=== PATIENT | female | born 1975 | race Caucasian/White ===

== ENCOUNTER 2017-06-06 22:18 | Inpatient (IN) | payer MEDICAID ==
[~2017-06-06] VITALS: Ht 160 cm; Wt 73.6 kg
--- NOTE | 2017-06-06 22:26 | NUR ---
PT SENT TO LOBBY TO WAIT FOR AVAILABLE BED. NO DISTRESS AND ALERT AND ORIENTED
--- NOTE | 2017-06-07 00:07 | NUR ---
PT PRESENTED TO ED WITH C/O EPIGASTRIC PAIN SINCE EARLIER TODAY. PT REPORTS PAIN RADIATES TO LOWER BACK. PT DENIES PAIN WHEN VOIDING. PT REPORT N&V, DESCRIBES PAIN PRESSURE, PAIN LEVEL 10/10. PT IS AAOX4, BREATHING EVEN AND UNLABORED. PT IN NO ACUTE DISTRESS
[2017-06-07 00:42] LABS: UA SPECIFIC GRAVITY >=1.030 (1.005-1.035); microscopic required? YES; urine erythrocyte TRACE (NEGATIVE)
[2017-06-07 00:44] LABS: BASOPHIL % 0.2 % (0-2); PLATELET COUNT 390 x10^3mcL (130-400); RED CELL DISTRIBUTION WIDTH 13.1 % (11.5-14.5)
[2017-06-07 00:46] LABS: CALCIUM 9.1 mg/dL (8.5-10.1); CARBON DIOXIDE 30.1 mmol/L (21-32); CHLORIDE SERUM 104 mmol/L (98-107); CREATININE SERUM 0.8 mg/dL (0.6-1.0); GFR1 > 60 mL/min; GLUCOSE SERUM 166 mg/dL (74-106); POTASSIUM SERUM 3.4 mmol/L (3.5-5.1); SODIUM SERUM 142 mmol/L (136-145)
[2017-06-07 00:51] LABS: ALBUMIN 4.3 g/dL (3.4-5.0); ALKALINE PHOSPHATASE 176 U/L (46-116); ALT/SGPT 299 U/L (14-59); AST/SGOT 251 U/L (15-37); BILIRUBIN TOTAL 2.8 mg/dL (0.20-1.00)
[2017-06-07 00:53] LABS: TOTAL PROTEIN, SERUM 8.5 g/dL (6.4-8.2)
--- NOTE | 2017-06-07 01:05 | NUR ---
MEDICATED PT PER E-MAR
--- NOTE | 2017-06-07 01:07 | NUR ---
PT TAKEN TO CT VIA ALLAN
--- NOTE | 2017-06-07 01:20 | NUR ---
PT RETURNED FROM CT SCAN
--- NOTE | 2017-06-07 01:42 | NUR ---
PT STATES PAIN HAS DECREASED. PT AAOX4, IN NO ACUTE DISTRESS.
[2017-06-07 01:44] LABS: LIPASE 24643 IU/L (73-393)
--- NOTE | 2017-06-07 02:17 | NUR ---
PT STATES CONTINUES TO EXPERIENCE PAIN. NOTIFED DR. GILLESPIE
--- NOTE | 2017-06-07 03:52 | NUR ---
GAVE REPORT TO JONNATHAN SINGER, TO ASSUME CARE POST TRANSFER
[2017-06-07 04:07] LABS: AMPHETAMINE QUAL UR NONE DETECTED (NEG <=1000)
[2017-06-07 04:07] LABS: FREE T4 1.07 ng/dL (0.76-1.46); FREE THYROXINE INDEX 3.2 ug/dL (1.4-4.5); T4(THYROXINE) 9.6 ug/dL (4.7-13.3)
[2017-06-07 04:10] LABS: T3 TOTAL 1.09 ng/mL
[2017-06-07 04:17] LABS: MAGNESIUM 2.2 mg/dL (1.8-2.4); PHOSPHOROUS 3.8 mg/dL (2.5-4.9)
--- NOTE | 2017-06-07 05:00 | NUR ---
RECEIVED PT FROM ED VIA MANPREET ACCOMPANIED BY NURSE. PT C/O OF ABDOMINAL PAIN AT THIS TIME, 8/10 ON PAIN SCALE. SHE STATES THAT WHEN SHE TAKES DEEP BREATHS, THAT'S WHEN THE ABDOMINAL PAIN GETS WORSE. PT DENIES N/V. PT STATED LAST BM WAS YESTERDAY BUT REPORTS THAT SHE FEELS CONSTIPATED AT THIS TIME. PT STATES THAT SHE FEELS CONSTIPATED EVERY NOW AND THEN. ABD IS ROUND AND SOFT WITH ACTIVE BOWEL SOUNDS. PT STARTED ON IV FLUIDS PER DOCTOR'S ORDERS. IV SITE IS DRY, PATENT, AND INTACT. SHE IS CALM AND COOPERATIVE AT THIS TIME. ORIENTED PT TO ROOM AND CALL LIGHT. WILL CONTINUE TO MONITOR
--- NOTE | 2017-06-07 05:46 | NUR ---
PT C/O OF ABDOMINAL PAIN AT THIS TIME. 8/10 ON PAIN SCALE. GIVEN PRN PAIN MEDICATION. WILL CONTINUE TO MONITOR
[2017-06-07 05:56] VITALS: BP 104/63
--- NOTE | 2017-06-07 06:56 | NUR ---
PT IS LAYING IN BED WITH EYES CLOSED AT THIS TIME. SHE DOES NOT APPEAR TO BE IN ANY ACUTE DISTRESS AT THIS TIME. IV FLUIDS REMAIN INFUSING PER DOCTOR'S ORDERS. IV SITE IS DRY, PATENT, AND INTACT. CALL LIGHT WITHIN REACH. WILL ENDORSE CARE TO DAY NURSE
--- NOTE | 2017-06-07 07:50 | NUR ---
RECEIVED PT IN BED. ASSESSED AND DOCUMENTED. STATED ABDOMINAL PAIN, 03/20. WILL MEDICATE WITH PRN DILAUDID ORDERED. NO NAUSEA/VOMITTING. SAFTEY PRECAUTIONS ON. WILL MONITOR.
--- NOTE | 2017-06-07 08:45 | NUR ---
AND RESIDENTS DID ROUNDS. EXPLAINED THE PLAN OF CARE.
[2017-06-07 08:54] LABS: BASOPHIL % 0.7 % (0-2); PLATELET COUNT 364 x10^3mcL (130-400); RED CELL DISTRIBUTION WIDTH 13.7 % (11.5-14.5)
[2017-06-07 09:10] LABS: CALCIUM 7.6 mg/dL (8.5-10.1); CARBON DIOXIDE 28.7 mmol/L (21-32); CHLORIDE SERUM 110 mmol/L (98-107); CREATININE SERUM 0.6 mg/dL (0.6-1.0); GFR1 > 60 mL/min; GLUCOSE SERUM 124 mg/dL (74-106); POTASSIUM SERUM 3.7 mmol/L (3.5-5.1); SODIUM SERUM 144 mmol/L (136-145)
[2017-06-07 10:00] VITALS: BP 107/67
[2017-06-07 13:32] VITALS: BP 91/64
--- NOTE | 2017-06-07 14:00 | NUR ---
INFORMED ABOUT US ABDOMEN RESULT.
--- NOTE | 2017-06-07 14:00 | NUR ---
PT RESTING IN BED COMFORTABLY. DENIES PAIN. STABLE.
[2017-06-07 17:14] VITALS: BP 105/66
--- NOTE | 2017-06-07 19:03 | NUR ---
PT RESTING IN BED COMFORTABLY. DENIES PAIN THIS TIME. NO DISTRESS NOTED. GAVE REPORT TO NEXT SHIFT NURSE.
--- NOTE | 2017-06-07 19:25 | NUR ---
RECEIVED PT IN BED AAWAKE, ALERT,ORIENTED X4. NO SOB ON RA. BOWEL SOUNDS ACTIVE. PT STATED ABDL PAIN IS MINIMAL AT THIS TIME. NO C/O N/V. PT ON NPO STATUS ORDERED. W/ IVF NS AT 150 CC/HR VIA LTFA. CALL LIGHT W/IN REACH.
[2017-06-07 20:51] VITALS: BP 99/51
[2017-06-08 05:20] VITALS: BP 109/52
--- NOTE | 2017-06-08 05:20 | NUR ---
PT SLEPT THROUGH THE NIGHT. SHE HAD NO C/O PAIN. NO N/V. PT SCHEDULED FOR ERCP AT 0730. IVF NS AT 150 CC/HR INFUSING WELL VIA LTFA.
--- NOTE | 2017-06-08 06:52 | NUR ---
CHLORHEXIDINE WIPES PRE-OP WASH DONE PER PROTOCOL.
--- NOTE | 2017-06-08 07:10 | NUR ---
PT TAKEN DOWN FOR ERCP.
--- NOTE | 2017-06-08 07:10 | NUR ---
RECEIVED PT FROM [employer] DRAWING OPERATOR. ASSESSED AND WILL DOCUMENT. PT DENIES PAIN. OR STAFF IS TAKING PT TO OR VIA [facility]ER[facility] FOR ERCP. PT STABLE. VITAL SIGNS STABLE. PT SIGNED CONSENT YESTERDAY AND CHECK LIST DONE.
[2017-06-08 07:49] LABS: PLATELET COUNT 305 x10^3mcL (130-400); RED CELL DISTRIBUTION WIDTH 14.1 % (11.5-14.5)
[2017-06-08 07:59] LABS: CALCIUM 7.8 mg/dL (8.5-10.1); CARBON DIOXIDE 25.5 mmol/L (21-32); CHLORIDE SERUM 109 mmol/L (98-107); CREATININE SERUM 0.6 mg/dL (0.6-1.0); GFR1 > 60 mL/min; GLUCOSE SERUM 109 mg/dL (74-106); POTASSIUM SERUM 3.5 mmol/L (3.5-5.1); SODIUM SERUM 144 mmol/L (136-145)
[2017-06-08 08:02] LABS: PHOSPHOROUS 2.1 mg/dL (2.5-4.9)
--- NOTE | 2017-06-08 09:00 | NUR ---
RECEIVED PT FROM RECOVERY ROOM AFTER ERCP. VITAL SIGNS STABLE AND RECORDED. DENIES PAIN THIS TIME. PT IS AWAKE,ALERT AND ORIENTED X4.
[2017-06-08 09:09] LABS: BAND NEUTROPHIL 4 % (0-10); BASOPHIL 0 % (0-2); MONOCYTE 2 % (0-7); SEGMENTED NEUTROPHILS 85 % (37-75)
[2017-06-08 09:11] LABS: PLATELET MORPHOLOGY PLATELETS NORMAL
[2017-06-08 09:59] VITALS: BP 106/66
--- NOTE | 2017-06-08 16:44 | NUR ---
TEMP IS 102.1. TYLENOL PO GIVEN AND COOLING MEASURES STARTED. RECHECKED TEMP AT 1745 AND TEMP IS 98.2.PT IS STABLE.
--- NOTE | 2017-06-08 16:45 | NUR ---
INFORMED ABOUT PT TEMP 102.1.
[2017-06-08 16:55] VITALS: BP 112/65
--- NOTE | 2017-06-08 19:00 | NUR ---
PT REMAINS STABLE. TEMP 98.2 NOW. NO DISTRESS NOTED. GAVE REPORT TO NEXT SHIFT NURSE.
--- NOTE | 2017-06-08 19:25 | NUR ---
PT AWAKE AND ORIENTED X 4. FAMILY AT BEDSIDE. BOWEL SOUNDS HYPOACTIVE, ABD ROUND AND SOFT. PT VERBALIZED PAIN AT 4/10 AND TOLERABLE. ADVISED PT TO NOTIFY NURSE FOR PAIN MGT. PT NPO FOR POSSIBLE PROCEDURE TOMORROW AM PER MD. CALL LIGHT AND PERSONAL BELONGINGS WITHIN REACH. WILL CONTINUE TO MONITOR.
--- NOTE | 2017-06-08 22:07 | NUR ---
I HAVE REVIEWED THE DATA COLLECTION BY REGIONAL PROJECT MANAGER (NAME):ENMANUEL SPAIN ENTERED ON (DATE/TIME): I CONCUR WITH THE DATA AND ANY EXCEPTIONS OR COMMENTS ARE LISTED BELOW:
--- NOTE | 2017-06-08 22:07 | NUR ---
PATIENT'S PLAN OF CARE WAS DISCUSSED AND REVIEWED WITH CLINICAL DOCUMENTATION CONSULTANT:ENMANUEL SPAIN
[2017-06-08 22:15] VITALS: BP 132/72
[2017-06-09 05:49] VITALS: BP 118/64
[2017-06-09 06:37] LABS: CALCIUM 7.7 mg/dL (8.5-10.1); CARBON DIOXIDE 25.2 mmol/L (21-32); CHLORIDE SERUM 106 mmol/L (98-107); CREATININE SERUM 0.6 mg/dL (0.6-1.0); GFR1 > 60 mL/min; GLUCOSE SERUM 98 mg/dL (74-106); SODIUM SERUM 142 mmol/L (136-145)
--- NOTE | 2017-06-09 06:41 | NUR ---
PT SLEPT FAIRLY. SHE WAS MEDICATED FOR PAIN X3 W/ DILAUDID W/ GOOD RELIEF. NO EPISODE OF N/V. NO BM NOTED. SHE IS KEPT ON NPO STATUS FOR POSS. PROCEDURE. IVF NS AT 126 CC/HR INFUSING VIA LTFA.
[2017-06-09 06:53] LABS: ALBUMIN 2.3 g/dL (3.4-5.0)
[2017-06-09 07:01] LABS: POTASSIUM SERUM 2.8 mmol/L (3.5-5.1)
--- NOTE | 2017-06-09 07:30 | NUR ---
PATIENT IS IN BED, AWAKE, ALERT BELGIAN SPEAKING IVF INFUSING WELL TO LEFT F/A. NPO EXCEPT FOR MEDS AT THIS TIME. PER PATIENT HER ABD PAIN IS MINIMAL AND TOLERABLE AT THIS TIME. AMBULATES AD ADOLFO TO THE BATHROOM PRN. NO ACUTE DISTRESS NOTED. WILL CONTINUE TO MONITOR.
[2017-06-09 08:17] LABS: PLATELET COUNT 288 x10^3mcL (130-400); RED CELL DISTRIBUTION WIDTH 14.3 % (11.5-14.5)
--- NOTE | 2017-06-09 08:30 | NUR ---
DR STRINGER AND MEDICAL TEAM INTO SEE PATIENT AND DISCUSS PLAN OF CARE.
--- NOTE | 2017-06-09 08:57 | NUR ---
PATIENT IS IN BED, C/O ABD PAIN 9/10 ON THE PAIN SCALE. MEDICATED WITH DILAUDID IV BY TANA SINGER ORDERED. WILL MONITOR FOR EFFECT.
[2017-06-09 09:48] VITALS: BP 125/71
--- NOTE | 2017-06-09 11:32 | NUR ---
FLEETS ENEMA GIVEN AT THIS TIME. PATIENT TOLERATED WELL. WILL MONITOR FOR EFFECT.
[2017-06-09 11:45] LABS: BAND NEUTROPHIL 2 % (0-10); BASOPHIL 0 % (0-2); MONOCYTE 4 % (0-7); PLATELET MORPHOLOGY PLATELETS NORMAL; SEGMENTED NEUTROPHILS 84 % (37-75); rbc morphology (normal/abnorm) NORMAL (NORMAL)
--- NOTE | 2017-06-09 15:54 | NUR ---
PATIENT IS IN BED, IV SITE ON LEFT F/A APPEARS PINK AND TENDER TO TOUCH PER PATIENT. NEW IV STARTED ON LEFT HAND. K-KODY WAS GIVEN BY TANA SINGER FOR K+ LEVEL OF 2.8 ORDERED. IVF INFUSING WELL. PER PATIENT HER ABD PAIN HAS DECREASED AFTER DILAUDID WAS GIVEN. WILL CONTINUE TO MONITOR.
[2017-06-09 16:44] VITALS: BP 126/74
[2017-06-09 16:57] LABS: CARBON DIOXIDE 27.6 mmol/L (21-32); CHLORIDE SERUM 107 mmol/L (98-107); CREATININE SERUM 0.5 mg/dL (0.6-1.0); GFR1 > 60 mL/min; GLUCOSE SERUM 111 mg/dL (74-106); POTASSIUM SERUM 3.3 mmol/L (3.5-5.1); SODIUM SERUM 142 mmol/L (136-145)
--- NOTE | 2017-06-09 16:57 | NUR ---
PER PATIENT SHE HAD A LARGE BM AFTER FLEETS ENEMA WAS GIVEN.
--- NOTE | 2017-06-09 19:30 | NUR ---
PATIENT RECEIVED AWAKE, ALERT, ORIENTED X 4. FAMILY AT BEDSIDE. NO DISTRESS NOTED. PATIENT C/O 5/10 TOLERABLE ABD PAIN AT THIS TIME. IV SITE TO RIGHT HAND, PATENT AND INTACT. IV FLUID INFUSING PER DOCTOR'S ORDER. BED IN LOWEST POSITION. CALL LIGHT WITHIN REACH. WILL CONTINUE TO MONITOR.
[2017-06-09 20:58] VITALS: BP 129/73
--- NOTE | 2017-06-09 21:54 | NUR ---
CONSENT FOR LAP GALINA OBTAINED AT THIS TIME.
--- NOTE | 2017-06-10 05:19 | NUR ---
PATIENT RESTED IN INTERVALS THOUGHOUT THE NIGHT. NO DISTRESS NOTED. MEDICATED FOR PAIN WITH DILAUDID IVP X 1, DILAUDID PO X 2, AND NORCO PO X 1, PER DOCTOR'S PRN ORDER. PAIN MANAGED THROUGHOUT THE NIGHT. ALL NEEDS MET. SAFETY AND COMFORT MEASURES MAINTAINED. BED IN LOWEST POSITION. CALL LIGHT WITHIN REACH. WILL CONTINUE TO MONITOR AND ENDORSE TO NEXT SHIFT NURSE.
[2017-06-10 05:47] VITALS: BP 128/77
[2017-06-10 06:42] LABS: CARBON DIOXIDE 27.1 mmol/L (21-32); CHLORIDE SERUM 106 mmol/L (98-107); CREATININE SERUM 0.5 mg/dL (0.6-1.0); GFR1 > 60 mL/min; GLUCOSE SERUM 98 mg/dL (74-106); PHOSPHOROUS 1.8 mg/dL (2.5-4.9); SODIUM SERUM 142 mmol/L (136-145)
--- NOTE | 2017-06-10 07:15 | NUR ---
PT RECEIVED DURING CHANGE OF SHIFT, A/OX4, NO TELE, DENIES CHEST PAIN, PULSES PRESENT, NO EDEMA, LUNGS CTA ON RA, DENIES SOB, BREATHING EVEN AND UNLABORED, DENIES N/V AT THIS TIMES, BOWEL SOUNDS ACTIVE, ABLE TO VOID, AMBULATORY, SKIN WARM/DRY/INTACT, DENIES PAIN AT THIS TIME, IV TO RIGHT HAND INFUSING NS AT 126ML/HR, IV WNL, CALL LIGHT WITHIN REACH, CALM AND COOPERATIVE, CALL LIGHT WITHIN REACH, WILL CONTINUE TO MONITOR.
[2017-06-10 07:40] LABS: PLATELET COUNT 302 x10^3mcL (130-400); RED CELL DISTRIBUTION WIDTH 13.6 % (11.5-14.5)
--- NOTE | 2017-06-10 08:28 | NUR ---
PT DENIES PAIN, DENIES SOB, VISITORS AT BEDSIDE, CALL LIGHT WITHIN REACH, WILL CONTINUE TO MONITOR.
--- NOTE | 2017-06-10 09:03 | NUR ---
DR. STRINGER AND RESIDENT MAKING ROUNDS, PLAN OF CARE DISCUSSED.
[2017-06-10 09:50] LABS: BAND NEUTROPHIL 3 % (0-10); BASOPHIL 1 % (0-2); MONOCYTE 4 % (0-7); SEGMENTED NEUTROPHILS 85 % (37-75); rbc morphology (normal/abnorm) NORMAL (NORMAL)
[2017-06-10 09:51] LABS: PLATELET MORPHOLOGY PLATELETS NORMAL
[2017-06-10 10:02] VITALS: BP 120/75
--- NOTE | 2017-06-10 10:23 | NUR ---
PT DENIES SOB, C/O ABD PAIN 01/18, VISITOR AT BEDSIDE, CALL LIGHT WITHIN REACH, WILL CONTINUE TO MONITOR.
--- NOTE | 2017-06-10 11:10 | NUR ---
PT DENIES SOB, STATES MEDICATION NOT EFFECTIVE, STATES PAIN STILL 01/18, C/O N/V, WILL MEDICATE PER EMAR, CALL LIGHT WITHIN REACH, WILL CONTINUE TO MONITOR.
--- NOTE | 2017-06-10 12:22 | NUR ---
PT DENIES SOB, STATES PAIN IS "BETTER", CALL LIGHT WITHIN REACH, POTASSIUM FINISHED INFUSING, VISITOR AT BEDSIDE, WILL CONTINUE TO MONITOR.
--- NOTE | 2017-06-10 12:49 | NUR ---
PT BEING TAKEN DOWN TO OR, WILL AWAIT PT'S RETURN.
--- NOTE | 2017-06-10 13:26 | NUR ---
PT IN OR, WILL AWAIT PT'S RETURN.
--- NOTE | 2017-06-10 14:09 | NUR ---
PT IN OR, WILL AWAIT PT'S RETURN.
--- NOTE | 2017-06-10 14:21 | NUR ---
Initial Nutrition Assessment Dx: abdominla pain, acute pancreatitis, choledocholecystitis PMHx: None PSHx:None Labs:06/10 K:3L, B, BUN:3L, Cr:0.5L, Ca:8L, Phos:1.8L, WBC:18.1H (06/07) T bili:2.8H, AST:251H, ALT:299H, Alk Phos:176H, Lipase:2463H Meds:Colace, Lactinex, Neutra-phos, Protonix IV, NS IV, Zofran Diet:NPO for surgery PO Intake: 06/07: NPO, 06/08:B:NPO, L:50%, D:90% (Full liquid) 06/09: B:NPO L: full liquid 30%, D:50% Ht:63in, 5'3" Wt:162#, 73.624kg BMI: 28.8kg/m2 (overweight) IBW:115#,52kg %IBW:141% UBW:unable to obtain Age:41 y/o female Food Allergies:unable to obtain Skin: intact Richard: 20 Edema:None GI:active bowel sounds, Last BM :06/09 Pt admitted with Acute pancreatitis secondary to likely choledocholithiasis Lipase 84783. Abdomen/pelvis CT shows peripancreatic fluid and possible pseudocyst vs abscess, as well as distended gallbladde, per H&P. Per bed huddle this morning, pt will have a laprascopic cholecystectomy with Dr. Whalen today. Pt was not in room during RD visit. Pt down in OR for lap pasha. Per RN note 06/10, pt c/o nausea and medication was given. Problem with: N:No V: No D: No C:No Problems with: Chewing+ Swallowing: None per EMR Current appetite: N/A due to current NPO status Recent wt change:unable to obtain %wt change:N/A Vitamin/Supplement use:None per EMR Special diet at home:Regular per EMR Physical activity:unable to obtain Education: unable to provide due to pt in operating room for laparoscopic cholecystectomy. Will provide education at follow-up. Estimated Nutritional Needs Based on ideal body weight 52kg due to IBW>130% Energy: 1300-1560kcal/d (25-30kcal/kg for maintenance) Protein: 52-62g/d (1.0-1.2 for general surgery maintenance/healing) Fluid:0852-2820 ml/d (1 ml/kcal) or per doctor Nutrition Diagnosis 1. Altered nutrition labs related to choledocholithiasis as evidenced by elevated lipase:2463 and pt undergoing laparoscopic cholecystectomy. Intervention 1. Recommend advance diet as tolerated to clear liquid, full liquid then to low fat. Monitor/Evaluate Goal: NPO<5-7days and diet advancement Monitor: NPO status, diet advancement, Labs, GI function F/U in 3-5 days as moderate risk:06/13-5
--- NOTE | 2017-06-10 14:22 | NUR ---
1. Recommend advance diet as tolerated to clear liquid, full liquid then to low fat.
--- NOTE | 2017-06-10 15:03 | NUR ---
WILL AWAIT PT'S RETURN.
--- NOTE | 2017-06-10 16:15 | NUR ---
RECEIVED REPORT ON PT FROM [employer]PER[employer], WILL AWAIT PT'S RETURN.
--- NOTE | 2017-06-10 16:35 | NUR ---
PT RECEIVED FROM OR, DENIES SOB, DENIES PAIN, VSS, X4 BANDAID WITH 1 DRESSING TO RIGHT SIDE OVER VIC DRAIN, VIC DRAIN SHOWS SEROSANGUINOUS DRAINAGE, CALL LIGHT WITHIN REACH, WILL CONTINUE TO MONITOR.
--- NOTE | 2017-06-10 17:10 | NUR ---
PT DENIES SOB, DENIES PAIN, VSS, ASSISTED TO RESTROOM, CALL LIGHT WITHIN REACH, WILL CONTINUE TO MONITOR.
[2017-06-10 17:59] LABS: CALCIUM 8.1 mg/dL (8.5-10.1); CARBON DIOXIDE 26.1 mmol/L (21-32); CHLORIDE SERUM 106 mmol/L (98-107); CREATININE SERUM 0.6 mg/dL (0.6-1.0); GFR1 > 60 mL/min; GLUCOSE SERUM 98 mg/dL (74-106); POTASSIUM SERUM 3.6 mmol/L (3.5-5.1); SODIUM SERUM 142 mmol/L (136-145)
--- NOTE | 2017-06-10 18:14 | NUR ---
PT DENIES SOB, DENIES PAIN, EATING DINNER, CALL LIGHT WITHIN REACH, WILL ENDORSE PT TO NEXT SHIFT.
[2017-06-10 18:17] VITALS: BP 128/77
--- NOTE | 2017-06-10 19:15 | NUR ---
PATIENT RECEIVED AWAKE, ALERT, AND ORIENTED X 4. NO DISTRESS NOTED. PATIENT C/O 4/10 TOLERABLE PAIN AT THIS TIME. WILL MEDICATE PRN. IV SITE TO RIGHT HAND, PATENT AND INTACT. IV FLUID INFUSING PER DOCTOR'S ORDER. BED IN LOWEST POSITION. CALL LIGHT WITHIN REACH. WILL CONTINUE TO MONITOR.
[2017-06-10 21:38] VITALS: BP 135/81
--- NOTE | 2017-06-11 05:13 | NUR ---
PATIENT RESTED IN INTERVALS THROUGHOUT THE NIGHT. NO DISTRESS NOTED. MEDICATED FOR ABD PAIN WITH NORCO PO X 1 AND DILAUDID PO X 2 PER DOCTOR'S PRN ORDER. PAIN MANAGED THROUGHOUT THE NIGHT. VIC OUTPUT=50CC. ALL NEEDS MET. SAFETY AND COMFORT MEASURES MAINTAINED. BED IN LOWEST POSITION. CALL LIGHT WITHIN REACH. WILL CONTINUE TO MONITOR AND ENDORSE TO NEXT SHIFT NURSE.
[2017-06-11 05:24] VITALS: BP 127/82
[2017-06-11 06:14] LABS: CALCIUM 8.2 mg/dL (8.5-10.1); CARBON DIOXIDE 26.5 mmol/L (21-32); CHLORIDE SERUM 108 mmol/L (98-107); CREATININE SERUM 0.6 mg/dL (0.6-1.0); GFR1 > 60 mL/min; GLUCOSE SERUM 139 mg/dL (74-106); POTASSIUM SERUM 3.9 mmol/L (3.5-5.1); SODIUM SERUM 142 mmol/L (136-145)
[2017-06-11 06:35] LABS: BASOPHIL % 0 % (0-2); PLATELET COUNT 327 x10^3mcL (130-400)
--- NOTE | 2017-06-11 09:06 | NUR ---
ROUNDS MADE AT THIS TIME WITH MD TEAM, CHARGE NURSE MARC, AND DR STRINGER. PATIENT RETURN DEMONSTRATION ON I.S. AT THIS TIME WITH MARKER ELEVATED TO 500. PATIENT TO CONTINUE USING I.S., PATIENT VERBALIZED UNDERSTANDING, WILL CONTINUE TO MONITOR.
--- NOTE | 2017-06-11 10:25 | NUR ---
PATIENT AMBULATING IN HALLWAY AT THIS TIME WITH FAMILY. GAIT SLOW, STEADY AND BALANCED. EDUCATED ON DEEP BREATHING EXERCISE AND POSTURE, WILL CONTINUE TO MONITOR.
[2017-06-11 10:40] VITALS: BP 122/74
--- NOTE | 2017-06-11 11:43 | NUR ---
PATIENT RESTING, NO SIGNS OF DISTRESS NOTED, FAMILY AT BEDSIDE. ALL SAFETY MEASURES IN PLACE, WILL CONTINUE TO MONITOR.
--- NOTE | 2017-06-11 16:10 | NUR ---
PATIENT AWAKE, ALERT, FAMILY AT BEDSIDE. MEDICATED PRN FOR PAIN 6/10 TO ABDOMEN (SEE EMAR). ALL SAFETY MEASURES IN PLACE, WILL CONTINUE TO MONITOR.
[2017-06-11 17:45] VITALS: BP 148/79
--- NOTE | 2017-06-11 18:10 | NUR ---
PATIENT AWAKE, ALERT, NO SIGNS OF DISTRESS NOTED, FAMILY AT BEDSIDE. EATING DINNER, TOLERATING WELL, ALL SAFETY MEASURES IN PLACE, WILL CONTINUE TO MONITOR.
--- NOTE | 2017-06-11 19:13 | NUR ---
BEDSIDE REPORT GIVEN TO NOC SHIFT RN AT THIS TIME. PATIENT AWAKE, ALERT, SITTING UP IN CHAIR, FAMILY AT BEDSIDE. BANDAIDS X4 CDI, VIC DRAIN DRESSING CDI, VIC WITH SUCTION ON, SEROSANGUINEOUS DRAINAGE NOTED. ALL SAFETY MEASURES IN PLACE, WILL CONTINUE TO MONITOR.
--- NOTE | 2017-06-11 19:30 | NUR ---
PT SITTING AT BEDSIDE IN CHAIR, FAMILY AT BEDSIDE. MEDSURG PT. NO C/O CP AT THIS TIME. SOME ABD PAIN AT THIS TIME, PT STATES IT IS TOLERABLE. WILL CONTINUE TO MONITOR. ABD INCISION X5 COVERED W/ BANDAIDS, CDI. VIC DRAIN W/ SOME DRAINAGE. RESP EVEN AND UNLABORED, ON RA. IV INFUSING TO RH 150ML/HR, NO REDNESS, SWELLING OR PAIN AT THIS TIME. CALL LIGHT WITHIN REACH, BED IN LOWEST POSITION. WILL CONTINUE TO MONITOR.
--- NOTE | 2017-06-12 05:20 | NUR ---
PT RESTING THROUGHOUT NIGHT W/ MINIMAL INTERRUPTIONS, PT MEDICATED X3 DURING SHIFT, NORCO X1, DILAUDID PO X1, DILAUDID IVP X1. PT STATED PAIN WAS UNDER CONTROL @ 0000 W/ LAST DOSE OF DILAUDID IV. VIC DRAIN REMAINED IN PLACE WITH MINIMAL DRAINAGE. ABD INCISION X5 COVERED W/ BANDAIDS; CDI. COMFORT AND SAFETY MEASURES PROVIDED FOR, CALL LIGHT WITHIN REACH, WILL CONTINUE TO MONITOR.
[2017-06-12 05:37] VITALS: BP 131/84
--- NOTE | 2017-06-12 05:58 | NUR ---
PT STATES SHE IS URINATING W/ SOME BLOOD STREAKS. NOTIFIED RESIDENT, BLADDER/KIDNEY ORDER FOR AM TO R/O KIDNEY STONES.
[2017-06-12 06:21] LABS: PLATELET COUNT 353 x10^3mcL (130-400)
[2017-06-12 06:26] LABS: CALCIUM 8.1 mg/dL (8.5-10.1); CARBON DIOXIDE 28.9 mmol/L (21-32); CHLORIDE SERUM 104 mmol/L (98-107); CREATININE SERUM 0.6 mg/dL (0.6-1.0); GFR1 > 60 mL/min; GLUCOSE SERUM 111 mg/dL (74-106); MAGNESIUM 1.8 mg/dL (1.8-2.4); PHOSPHOROUS 2.3 mg/dL (2.5-4.9); POTASSIUM SERUM 3.6 mmol/L (3.5-5.1); SODIUM SERUM 139 mmol/L (136-145)
[2017-06-12 06:32] LABS: BASOPHIL % 0 % (0-2)
--- NOTE | 2017-06-12 08:00 | NUR ---
RECEIVED PATIENT A/A/OX4. NO RESP DISTRESS ON RA. DENIED CHEST PAIN. 3RD DAY OF POST-OP, STATED NOT PASSING GAS. NO BM YET. C/O GAS PAIN ON AND OFF. ON REGULAR DIET. TOLERATED , NO N/V. ABD ROUND/SOFT, BOWEL SOUND HYPOACTIVE. ENCOURAGE TO AMBULATE IN [address] TOLERATED. IVF OF NS 150CC/HR INFUSING WELL TO R HAND. IV SITE CLEAN. NO S/S OF INFILTRATION. STATED NO ABD PAIN NOW, LAST DILAUDED GIVENA T 0606 BY [facility] NURSE. CONTINUE MONITOR. CALL LIGHT IN REACH.
--- NOTE | 2017-06-12 09:00 | NUR ---
DR. STRINGER AND MEDICAL TEAM MADE MORNING ROUND. PLAN OF CARE DISCUSSED WITH PATIENT, INCLUDED WITH POSSIBLE D/C HOME TODAY IF OK WITH DR. KHANNA. PATIENT AGREED WITH PLAN OF CARE.
[2017-06-12 10:10] VITALS: BP 115/80
--- NOTE | 2017-06-12 15:00 | NUR ---
DULCOLAX SUPP GIVEN AT 1145. NO BM YET. FLEETS ENEMA GIVEN. Angela MUIR 30CC SEROSANGUINOUS COLLECTED.
[2017-06-12] MEDS ORDERED: CLEOCIN HCL150 MG PO (15:10)
[2017-06-12] MEDS ORDERED: KEFLEX500 M1 PO (15:11)
[2017-06-12] MEDS ORDERED: NORCO1 TA1 PO (15:14)
[2017-06-12] MEDS ORDERED: LAC PO (15:15)
[2017-06-12] MEDS ORDERED: COL100 PO (15:16)
[2017-06-12] MEDS ORDERED: IBUPROFEN400 MG PO (15:44)
--- NOTE | 2017-06-12 16:00 | NUR ---
STATED HAD SMALL BM AFTER FLEETS ENEMA GIVEN. D/C J-P TO RLQ ABD PER ORDER. J-P INTACT. COVERED WITH 2X2 GAUZE.
--- NOTE | 2017-06-12 16:01 | NUR ---
PATIENT REFUSED DULCOLAX SUPP. WANTED PAIN MEDS. DR. ASHLEY NOTIFED.
[2017-06-12 16:11] VITALS: BP 115/80
[2017-06-12 16:50] VITALS: BP 126/74
--- NOTE | 2017-06-12 17:00 | NUR ---
NORCO 7.5/325 PO GIVEN PER ORDER.
--- NOTE | 2017-06-12 17:40 | NUR ---
STATED ABD PAIN DOWN TO TOLERATED LEVEL.
--- NOTE | 2017-06-12 17:40 | NUR ---
D/C TO HOME PER ORDER. INSTRUCTION GIVEN. PHOTO TAKEN. CONDITION STABLE. IV D/C'D. OVER NEEDLE CATH INTACT.
== END 2017-06-12 17:48 | disposition home or self-care (01) | DRG 263 ==
LOC: ED 22:18 → DU 06-07 02:36 → MU 06-07 02:36 → DU 06-07 05:03 → MU 06-07 10:43
PROVIDERS: Emergency Medicine; Family Medicine; Surgery; ADMIT Family Medicine
PROC: 0FC98ZZ Extirpation of Matter from Common Bile Duct, Via Natural or Artificial Opening Endoscopic (ICD-10-PCS; 2017-06-08)
PROC: 0FT44ZZ Resection of Gallbladder, Percutaneous Endoscopic Approach (ICD-10-PCS; principal; 2017-06-10 11:20)
DX: K80.00 Calculus of gallbladder with acute cholecystitis without obstruction (principal); N17.0 Acute kidney failure with tubular necrosis; E43 Unspecified severe protein-calorie malnutrition; K85.10 Biliary acute pancreatitis without necrosis or infection; E86.0 Dehydration; K29.00 Acute gastritis without bleeding; N39.0 Urinary tract infection, site not specified; R80.9 Proteinuria, unspecified; R74.0 Nonspecific elevation of levels of transaminase and lactic acid dehydrogenase [LDH]; E87.6 Hypokalemia; E83.39 Other disorders of phosphorus metabolism; D64.9 Anemia, unspecified; E66.3 Overweight; Z68.29 Body mass index [BMI] 29.0-29.9, adult
CPT/HCPCS: 43260; 84439; 94150; C1769; C9113; J0330; J1170; J2250; J2405; J2543; J2704; J2710; J3010; J3480; J3490; J7030; J7120; Q0092; Q9967